=== PATIENT | female | born 1995 | race Caucasian/White ===

== ENCOUNTER → 2018-05-08 20:48 | Outpatient (CLI) | payer SELFPAY ==
[2018-05-08 22:41] LABS: Chlamydia Trachomatis by PCR Negative (Negative); Neisserai gonorrhoeae by PCR Negative (Negative); Probe Check PASS; Sample Adequacy Control PASS; Specimen Processing Control PASS
== END ==
PROVIDERS: Visit Provider Obstetrics & Gynecology
DX: Z12.4 Encounter for screening for malignant neoplasm of cervix (principal); Z11.3 Encounter for screening for infections with a predominantly sexual mode of transmission; Z32.01 Encounter for pregnancy test, result positive
CPT/HCPCS: 87491; 87591; 88175; G0145

== ENCOUNTER → 2018-09-04 09:40 | Outpatient (CLI) | payer OTHER, SELFPAY ==
[2018-09-04 10:50] LABS: Glucose GTT-Gestation. Fasting 75 mg/dL (<105)
[2018-09-04 12:08] LABS: Glucose GTT-Gestational 1 Hr 176 mg/dL (<190)
[2018-09-04 14:09] LABS: Glucose GTT-Gestational 3 Hr 62 L (<145)
[2018-09-04 14:09] LABS: Glucose GTT-Gestational 2 Hr 138 mg/dL (<165)
== END ==
PROVIDERS: Family Provider Family Medicine; PCP Family Medicine; Referring Provider Obstetrics & Gynecology; Visit Provider Obstetrics & Gynecology
DX: O24.912 Unspecified diabetes mellitus in pregnancy, second trimester (principal); Z3A.00 Weeks of gestation of pregnancy not specified
CPT/HCPCS: 36415; 82951; 82952

== ENCOUNTER → 2018-10-23 09:30 | Outpatient (CLI) | payer OTHER, SELFPAY ==
--- OUTSIDE RECORDS SUMMARY | 2019-01-25 10:26 | XMS RPT_ITS ---
:1995 Author Organization OHIP Care Team Providers Name Role Phone KYLIE WHEATLEY MD Primary Care Unavailable KYLIE WHEATLEY MD Attending Unavailable KYLIE WHEATLEY MD Admitting Unavailable EM CASTILLO Admitting Unavailable EM CASTILLO Attending Unavailable EM CASTILLO Primary Care Unavailable AARON COHEN Consulting Unavailable ANTHONY BRIDGES CNM Primary Care Unavailable ANTHONY BRIDGES CNM Attending Unavailable ANTHONY BRIDGES CNM Admitting Unavailable PROVIDER, UNKNOWN Consulting Unavailable Em Castillo Attending Unavailable Riddhi Huff Attending Unavailable Riddhi Huff Admitting Unavailable Em Castillo Attending Unavailable Em Castillo Referring Unavailable Em Castillo Admitting Unavailable Em Castillo Attending Unavailable Em Castillo Referring Unavailable Em Castillo Attending Unavailable Em Castillo Referring Unavailable Aaron Cohen Primary Care Unavailable PROBLEMS PROBLEMS DATE TYPE CONDITION / CODE ATTENDING STATUS SOURCE 11/24/2018 Unknown G89.18 - Other acute Riddhi Huff postprocedural pain Community / G89.18(ICD-10) Hospital Repository 10/24/2018 Unknown Z36.85 - Encounter Em Castillo for Community screening for Hospital Streptococcus B / Repository Z36.85(ICD-10) 09/04/2018 Unknown O24.912 - Agueda Em Carlos Unspecified diabetes Community mellitus in Hospital , second Repository trimester / O24.912(ICD-10) 08/28/2018 Admitting Encounter for EM CASTILLO Leanna Ferguson Diagnosis supervision of other [facility] second trimester / Repository Z3482(ICD-10) 08/28/2018 Principle Encounter for EM CASTILLO Leanna Ferguson Diagnosis supervision of other [facility] second trimester / Repository Z3482(ICD-10) 05/10/2018 Unknown Z32.01 - Encounter Em Castillo for test, Community result positive / Hospital Z32.01(ICD-10) Repository 05/10/2018 Unknown Z11.3 - Encounter Em Castillo for screening for Community infections with a Hospital predominantly sexual Repository mode of transmission / Z11.3(ICD-10) 05/10/2018 Unknown Z12.4 - Encounter Em Castillo for screening for Community malignant neoplasm [facility] / Repository Z12.4(ICD-10) PROCEDURES PROCEDURES No Procedure Records FoundRESULTS RESULTS DISCHARGE SUMMARY Observed: 11/24/2018 Status: F Source: [place] 10:27 AM [facility] REPOSITORY [facility] Medical Records Department [address] [place] [address] Discharge Summary 11/24/18 1025 MR#: [id number] Acct: [id number] Name: VI LUND Nate Rep #: [id number] : 1995 23 From: Shea Cordova MD PCP: Status: ADM IN Y Location: WP [id number] Discharge Date and Diagnosis Date of Admission: 11/21/18 Date of Discharge: 11/24/18 Hospital Course and Treatment Operations: - - Low transverse section Procedures: None Summary of Care Provided: The patient is a 23 year old F 1 admitted at 40 weeks gestation in labor. She underwent primary section for arrest of descent. Her postoperative course was uncomplicated. She was out of bed, ambulating, voiding, tolerating a regular diet and passing flatus. She was discharged to home on post-operative day #3. - Physical Exam Vital Signs Temp Pulse Resp BP Pulse Ox 98.0 F 68 18 131/79 H 98 11/24/18 09:00 11/24/18 09:00 11/24/18 09:00 11/24/18 09:00 11/23/18 20:08 Oxygen Flow Rate (L/min) 1 Oxygen Delivery Method Room Air Weight: 91.2 kg Body Mass Index (BMI) 36.8 Intake and Output for Last 24 Hours Intake Total 2806 / 2806 Output Total 4250 / 4250 Balance -1444 / -1444 Discharge Diet: No Restrictions Discharge Activity: Return to Normal Activity, May Drive, May Shower Return to work on:: 01/21/19 May shower in (days): 0 May resume sexual activity in: 6 weeks Call your doctor if your incision/area has: Sudden Increased Bleeding, Increased Pain/ Swelling, Increased Redness, Foul Smelling Discharge, Swelling at the incision site Call your doctor if you observe: Fever of 101 or Higher, Inability to urinate, Inability to have a bowel movement, Using more than one pad per hour, Shortness of breath, Chest pain, Calf discomfort, Uncontrolled pain Remove Dressing in (days):: 3 Cleanse incision/area with: Soap AND Water Home Medications: Medications to take at Discharge Ibuprofen 600 mg PO 4X/DAY #30 tab 11/21/18 Oxycodone [Oxyir] 5 - 10 mg PO Q4H PRN PRN 7 Days #20 tab 11/21/18 Following Prescrptions Were Given to Patient: Oxycodone [Oxyir] 5 - 10 mg PO Q4H PRN PRN 7 Days #20 tab PRN Reason: Mod-Severe Pain (-08/15) Ibuprofen 600 mg PO 4X/DAY #30 tab Please Follow Up With: Em Castillo MD When: 1-2 weeks call for appt Medical Necessity - Tobacco Use Smoking Status: Never smoker Meaningful Use Info Meaningful Use Diagnoses (Choose all that apply): None applicable 11/24/18 1027 <Electronically signed by Shea Resendiz MD> Date Shea Resendiz MD Cosigner Signature (if applicable): Date CC: Shea Resendiz MD Signed OPERATIVE REPORT Observed: 11/22/2018 Status: F Source: [place] 8:05 AM [facility] REPOSITORY [facility] Medical Records Department [address] [place] [address] Operative Report 11/21/18 2159 MR#: [id number] Acct: [id number] Name: VI LUND Rep #: [id number] : 1995 23 From: Serafin Walls MD PCP: Status: ADM IN Location: [id number] Report of Operation Date of Procedure: 11/21/18 Pre-Operative Diagnosis: Arrest of Descent Post-Operative Diagnosis: Same Surgery/Procedure Performed:: Primary Low Transverse Section Description of Surgical Findings:: Baby in transverse position. Amniotic fluid with moderate meconium. weight 8lb0oz. APGARs 8/9. Normal appearing uterus, ovaries, fallopian tubes. Maximum descent to +2 station. sound effects technician: Kathryn Archer Type of Anesthesia:: Epidural Anesthesiologist: Guillermo Quintero Special Medications: none Specimen's removed: none Drains: barraza Estimated Blood Loss (mL): 600cc Fluids Replaced: 1500cc Description of Procedure: Vi progressed to FD pushed for 3 hours with no descent lower than +2 station despite adequate pushing efforts and trial of Kiwi vacuum assisted delivery. Procedures, risks, and indications explained prior to the surgery. She was taken to the OR with IV running. She was given two gram of Ancef intravenously for surgical prophylaxis. Her epidural anesthesia was dosed and found to be adequate. She was prepped and draped in the supine position with a leftward tilt. A barraza catheter had been previously placed. A Pfannensteil skin incision was then made with the scalpel. The underlying subcutaneous tissue was dissected down to the level of fascia with sharp and blunt dissection. The fascia was then entered in the midline and the fascial defect was extended bilaterally using the Cali scissors. The upper portion of the fascial defect was then grasped with two Jacques clamps, elevated and the rectus muscles dissected off with sharp and blunt dissection. In a similar fashion the rectus muscles were dissected off the lower fascial defect. The rectus muscles were then in the midline, the peritoneum identified and entered sharply. The peritoneal defect was enlarged using blunt dissection. A bladder blade was placed. A bladder flap was then created and the bladder blade replaced. The lower uterine segment was then incised in a transverse fashion. Once the cavity was entered the uterine defect was extended using blunt lateral and superior traction. The baby's head and body were then delivered atraumatically. The baby's mouth and nares were suctioned with a bulb suction. The cord was clamped and cut and the baby handed off to the waiting pediatric nurse for evaluation by the entertainment centre manager Dr Ma. The placenta was delivered manually, the uterus exteriorized, and the cavity cleared of all clot and membranes. The uterine incision was repaired in two layers with #1 Vicryl suture. The posterior cul de sac and gutters were cleared of all clot and fluid. The uterus was returned to the abdomen. The uterine incision was reinspected and found to be hemostatic. The peritoneum was repaired with a running stitch of 2-0 Vicryl. The rectus muscles were reapproximated with interrupted sutures of 0-Vicryl. The fascia was closed with a running stitch of #1 Stratofix suture. The subcutaneous tissue was closed with a running stitch of 2- 0 Vicryl. The skin was closed with a subcuticular stitch of 4-0 Monocryl. Sponge, lap, needle, and instrument counts were correct. She was taken to her recovery room in stable condition. Grafts/Implants Used: none - Complications none - Admit VTE Documentation VTE Present on Admission: No VTE Mechan Device Prophylaxis: SCD's VTE Pharm Prophylaxis ordered?: No 11/22/18 0805 <Electronically signed by Serafin Walls MD> Date Serafin Walls MD CC: Serafin Walls MD Signed OPERATIVE REPORT Observed: 11/22/2018 Status: F Source: [place] 8:03 AM [facility] REPOSITORY [facility] Medical Records Department [address] [place] [address] Operative Report 11/21/18 2157 MR#: [id number] Acct: [id number] Name: VI LUND Rep #: [id number] : 1995 23 From: Serafin Walls MD PCP: Status: ADM IN Y Location: [place] [address] Delivery Classification: STEPHANIE Final JAJA: 11/21/18 Final JAJA Source: US <20 weeks Gestational age: 40 Weeks and 1 Days doctor who attended delivery (if requested by OB): Gracia Panchal Indications for : Failure to Progress, Failure of Descent Description of Procedure: Baby in transverse position. Amniotic fluid with moderate meconium. weight 3bol0tr. Apgars 8/9. Normal appearing uterus, ovaries, and fallopian tubes. Amniotic Membrane Rupture Type: Spontaneous Amniotic Fluid Description: Clear, Moderate meconium Placenta Disposition: [facility] Drain: Barraza to straight drain Fluids Replaced: 1500cc Cord Entanglement: None Nuchal Cord Compression: Without compression Cord Vessel Description: 3 Vessels Esitmated Blood Loss (ml): 600 Gender: Male (1 minute): 8 (5 minute): 9 Delayed cord clamping: Yes Pre-op Antibiotic Given: Ancef 2 grams IV x1 Pt instructed on risks of surgery: Bleeding, Infection, Injury to surrounding structure(s) including bowel and bladder Complications: None - Admit VTE Documentation VTE Present on Admission: No VTE Mechan Device Prophylaxis: SCD's VTE Pharm Prophylaxis ordered?: No 11/22/18 0803 <Electronically signed by Serafin Walls MD> Date Serafin Walls MD CC: Serafin Walls MD Signed CBC-COMPLETE BLOOD CNT Collected: 11/22/2018 Status: F Source: [place] NO DIFF 5:50 AM [facility] REPOSITORY Order Comment: Comments: Day #1 Reason for Laboratory Test TYPE CODE TESTS RESULT OUT OF RANGE REFERENCE UNITS LAB L100.1000 4.4-11.0 K/mm3 High WBC 15.4 LAB L100.1200 4.2-5.4 M/mm3 Low RBC 3.75 LAB L100.1300 12.0-15.0 g/dl Low HGB 10.5 LAB L100.1400 37-47 % Low HCT 32.5 LAB L100.1500 81-99 fL Normal MCV 86.7 LAB L100.1600 27.0-32.0 pg Normal MCH 28.0 LAB L100.1700 32-36 g/gl Normal MCHC 32.3 LAB L100.1810 11.6-14.6 % Normal RDW CV 14.5 LAB L100.1820 35.1-43.9 fl High RDW SD 45.2 LAB L100.1900 150-450 K/mm3 Normal PLT 162 LAB L100.2000 6.2-12.0 fl Normal MPV 9.7 Performed By: #### L100.0500 #### [facility] [address] [facility] [place], [address] DISCHARGE INSTRUCTION Observed: 11/21/2018 Status: F Source: [place] 10:14 PM [facility] REPOSITORY [facility] Medical Records Department [address] [place] [address] Instructions for Home/Discharge Instructions 11/21/18 2213 MR#: [id number] Acct: [id number] Name: VI LUND Rep #: [id number] : 1995 23 From: Serafin Walls MD PCP: Status: ADM IN Discharge Diet: No Restrictions Discharge Activity: Return to Normal Activity, May Drive, May Shower Return to work on:: 01/21/19 May shower in (days): 0 May resume sexual activity in: 6 weeks Call your doctor if your incision/area has: Sudden Increased Bleeding, Increased Pain/ Swelling, Increased Redness, Foul Smelling Discharge, Swelling at the incision site Call your doctor if you observe: Fever of 101 or Higher, Inability to urinate, Inability to have a bowel movement, Using more than one pad per hour, Shortness of breath, Chest pain, Calf discomfort, Uncontrolled pain Remove Dressing in (days):: 3 Cleanse incision/area with: Soap AND Water Additional Instructions: If you experience any of the following, contact your healthcare provider. * Bleeding that soaks a pad every hour for 2 hours * Fever 100.4 or higher * Unrelieved incision or abdominal pain * Swelling, redness, discharge or bleeding from your incision or episiotomy site * Your incision begins to separate * Problems urinating (including inability to urinate or burning while urinating). * Visual changes * Severe headache * Flu-like symptoms * Pain or redness in one of both of your breasts * Pain, warmth, tenderness or swelling in your legs, especially the calf area * Frequent nausea and vomiting * Symptoms of depression or anxiety If you experience any of the following, call 911 or go to the nearest Emergency Room. * Chest pain * Problems breathing * Seizure activity * Partial or complete paralysis of a body part, slurred speech, weakness or drooping of the face, or a sudden inability to walk or hold your balance Allergies/Adverse Reactions: Allergies No Known Allergies Allergy (Verified 11/21/18 00:42) Medications to take at Discharge Ibuprofen 600 mg PO 4X/DAY #30 tab 11/21/18 Oxycodone [Oxyir] 5 - 10 mg PO Q4H PRN PRN 7 Days #20 tab 11/21/18 The following prescriptions were given: Oxycodone [Oxyir] 5 - 10 mg PO Q4H PRN PRN 7 Days #20 tab PRN Reason: Mod-Severe Pain (4-10/10) Ibuprofen 600 mg PO 4X/DAY #30 tab Follow-Up: Call to make an appointment with your doctor for an incision check in 1-2 weeks. You will also need a 6 week post- follow up appointment. Test results from this visit will be discussed in further detail at your follow-up appointment, if applicable. Please Follow Up With: Em Castillo MD When: 1-2 weeks call for appt Proposed Discharge Date: 11/24/18 11/21/18 3900 <Electronically signed by Serafin Walls MD> Date Serafin Walls MD CC: Signed CBC-COMPLETE BLOOD CNT Collected: 11/21/2018 Status: F Source: [place] NO DIFF 1:20 AM [facility] REPOSITORY TYPE CODE TESTS RESULT OUT OF RANGE REFERENCE UNITS LAB L100.1000 4.4-11.0 K/mm3 High WBC 12.2 LAB L100.1200 4.2-5.4 M/mm3 Normal RBC 4.20 LAB L100.1300 12.0-15.0 g/dl Normal HGB 12.0 LAB L100.1400 37-47 % Low HCT 36.1 LAB L100.1500 81-99 fL Normal MCV 86.0 LAB L100.1600 27.0-32.0 pg Normal MCH 28.6 LAB L100.1700 32-36 g/gl Normal MCHC 33.2 LAB L100.1810 11.6-14.6 % Normal RDW CV 14.1 LAB L100.1820 35.1-43.9 fl Normal RDW SD 43.3 LAB L100.1900 150-450 K/mm3 Normal PLT 244 LAB L100.2000 6.2-12.0 fl Normal MPV 10.2 Performed By: #### L100.0500 #### [facility] [address] [facility] [place], [address] TYPE AND SCREEN Collected: 11/21/2018 Status: F Source: [place] 1:20 AM [facility] REPOSITORY Order Comment: Reason for Type AND Screen/Red Cells: ROUTINE TYPE CODE TESTS RESULT OUT OF RANGE REFERENCE UNITS LAB B10.0800 A Normal BLOOD TYPE GEL POSITIVE LAB B100.4000 Normal Antibody NEGATIVE Screen Performed By: #### B101.7450 #### [facility] [address] [facility] [place], [address] Observed: 10/23/2018 Status: F Source: [place] CULTURE, GROUP B 9:30 AM [facility] REPOSITORY Comments: VAGINAL/RECTAL ESPERANZA Culture ORGANISM 1: Streptococcus agalactiae (B) Amount Growth Growth Streptococcus agalactiae (B): REACTION Ampicillin $ <=0.25 S Clindamycin $$ <=0.25 R Inducable Clindamycin Resistan + Linezolid $$$$ <=2 S Vancomycin $ 0.5 S (NF) indicates non-formulary drug at [facility]. Approval by Infectious Disease Specialist required before non-formulary drugs may be ordered and/or dispensed. * CLSI guidelines does not recommend testing of cephalosporins. This interpretation is deduced from Beta-lactam/penicillin results. Performed By: #### M100.1800 #### [facility] [address] [facility] [place], [place], [address] GESTATIONAL GTT 3HR Collected: 09/04/2018 Status: F Source: [place] 100G 9:47 AM [facility] REPOSITORY Order Comment: Is Patient Fasting? Y TYPE CODE TESTS RESULT OUT OF RANGE REFERENCE UNITS LAB L501.0650 <105 mg/dL Normal GLU 75 GTT-FASTING Result Comment: GLUCOSE TOLERANCE TEST FOR Reference Interval GESTATIONAL DIABETES Fasting <105 mg/dL 1 hour <190 mg/dl 2 hour <165 mg/dl 3 hour <145 mg/dl LAB L501.0660 <190 mg/dL Normal GLU GTT- 1HR 176 LAB L501.0670 <165 mg/dL Normal GLU GTT- 2HR 138 LAB L501.0680 <145 L Normal GLU GTT- 3HR 62 Performed By: #### L500.4710 #### [facility] [address] [facility] [place], [place], [address] URINALYSIS WITHOUT Collected: 08/30/2018 Status: F Source: [facility] MICROSCOPY 7:44 PM [facility] REPOSITORY TYPE CODE TESTS RESULT OUT OF REFERENCE UNITS RANGE LAB URINALYSIS WITHOUT MICROSCOPY(LOIN C) URINALYSIS WITHOUT MICROSCOPY Result Comment: URINE DIPSTICK ONLY LAB Color(LOINC) Color YELLOW LAB Clarity(LOINC) Clarity clear LAB pH(LOINC) NORMAL: 5.0-8.0 pH 7 LAB Protein(LOINC) NORMAL: NEGATIVE Protein NEG LAB Glucose(LOINC) NORMAL: NEGATIVE Glucose NORM LAB Ketone(LOINC) NORMAL: NEGATIVE Ketone Abnormal 5 LAB Bilirubin(LOINC) NORMAL: NEGATIVE Bilirubin NEG LAB Blood(LOINC) NORMAL: NEGATIVE Blood NEG LAB Urobilinogen(LOIN 0.2 - 1.0 C) Urobilinogen NORM LAB Sp [place](LOINC) NORMAL: 1.010-1.035 Sp [place] 1.010 LAB Nitrite(LOINC) NORMAL: NEGATIVE Nitrite NEG LAB Leukocytes(LOINC) NORMAL: NEGATIVE Leukocytes Abnormal 500 Performed By: #### [id number] #### [facility] [address] Observed: 08/30/2018 Status: F Source: [facility] FIBRONECTIN 7:44 PM [facility] REPOSITORY FIBRONECTIN POSITIVE A negative fFN test rules out delivery: < 1% will deliver within the next 14 days. A positive fFN test allows interventions for those with highest risk of delivery in the next 14 days Invalid means that the assay did not meet internal acceptance criteria for a valid test. This can be due to contamination of the swab or cervicovaginal secretions with lubricants, soaps, or disinfectants. Performed By: #### [id number] #### [address] [address] CBC Collected: 08/28/2018 Status: F Source: [facility] 9:55 AM [facility] REPOSITORY TYPE CODE TESTS RESULT OUT OF RANGE REFERENCE UNITS LAB CBC(LOINC) CBC Result Comment: CBC-COMPLETE BLOOD COUNT LAB WBC(LOINC) 4.5 - 10.8 x 10EE3/UL WBC 9.9 LAB RBC(LOINC) 4.10 - x 10EE6/UL 5.30 RBC Low 3.65 LAB HEMOGLOBIN(LOINC) 12.0 - g/dl 16.0 Low HEMOGLOBIN 11.1 LAB HEMATOCRIT(LOINC) 34.0 - % 46.0 Low HEMATOCRIT 32.7 LAB MCV(LOINC) 80 - 99 fl MCV 90 LAB MCH(LOINC) 27 - 33 pg MCH 31 LAB MCHC(LOINC) 32 - 36 X10 3 MCHC 34 LAB RDW/CV(LOINC) 12.0 - % 15.6 RDW/CV 12.7 LAB PLATELET(LOINC) 150 - 450 x10EE3/UL PLATELET 258 LAB MPV(LOINC) 6.6 - 10.5 fl MPV 7.8 Result Comment: AUTOMATED DIFFERENTIAL LAB NEUT %(LOINC) 46.0 - 76.0 % NEUT % High 78.6 LAB LYMPH %(LOINC) 20.0 - 45.0 % Low LYMPH % 15.4 LAB MONOS %(LOINC) 0.0 - 10.0 % MONOS % 5.3 LAB EO %(LOINC) 0.0 - 7.0 % EO % 0.4 LAB BASO %(LOINC) 0.0 - 2.0 % BASO % 0.3 LAB Lymph #(LOINC) 0.80 - 2.80 x10EE3/U L Lymph # 1.50 LAB Neut #(LOINC) 1.50 - 7.10 x10EE3/U L Neut # High 7.80 LAB Dade #(LOINC) 0.20 - 1.00 x10EE3/U L [place]ade # 0.50 LAB EO #(LOINC) 0.00 - 0.50 x10EE3/U L EO # 0.00 LAB Baso #(LOINC) 0.00 - 0.10 x10EE3/U L Baso # 0.00 LAB MANUAL DIFF([facility]) MANUAL DIFF N/A LAB MORPHOLOGY(INC ) MORPHOLOGY N/A Result Comment: {CD] Performed By: #### [id number] #### [facility],[address] [place] [address] GLUCOSE CHALLENGE 50GM Collected: 08/28/2018 Status: F Source: [facility] 1 HOUR 9:55 AM [facility] REPOSITORY TYPE CODE TESTS RESULT OUT OF REFERENCE UNITS RANGE LAB GLUCOSE CHALLENGE 50GM 1 HOUR(INC) GLUCOSE CHALLENGE 50GM 1 HOUR Result Comment: GLUCOSE CHALLENGE 50 GMS 1 HOUR LAB GLUCOSE 70 - 140 mg/dl 1HR(LOINC) High GLUCOSE 1HR 158 Performed By: #### [id number] #### [facility],[address] [place] [address] URINALYSIS Collected: 06/05/2018 Status: F Source: [facility] 10:00 AM [facility] REPOSITORY TYPE CODE TESTS RESULT OUT OF REFERENCE UNITS RANGE LAB URINALYSIS (LOINC) URINALYSIS Result Comment: URINALYSIS LAB Specimen Type(INC) Specimen Type UNSPECIFIED LAB Color(LOINC) NORMAL: YELLOW Color p.yel LAB Clarity(LOINC) NORMAL: CLEAR Clarity clear LAB ph(LOINC) NORMAL: 5.0-8.0 ph 7 LAB Protein(LOINC) NORMAL: NEGATIVE Protein NEG LAB Glucose(LOINC) NORMAL: NORMAL Glucose NORM LAB Ketone(LOINC) NORMAL: NEGATIVE Ketone NEG LAB Bilirubin(LOINC) NORMAL: NEGATIVE NEG Bilirubin LAB Blood(LOINC) NORMAL: NEGATIVE Blood 10 Abnormal LAB Urobilinog(LOINC NORMAL: ) NORMAL NORM Urobilinog LAB Sp NORMAL: [place](LOINC) Low 1.010-1.030 Sp 1.005 [place] LAB Nitrite(LOINC) NORMAL: NEGATIVE Nitrite NEG LAB Leukocytes(LOINC NORMAL: ) NEGATIVE 100 Abnormal Leukocytes LAB Microscopic(LOIN C) SEE Microscopic BELOW Result Comment: MICROSCOPIC LAB Wbc(LOINC) 0-5/hpf Wbc 6-10 LAB Rbc(LOINC) 0-3/hpf Rbc NONE LAB Casts(LOINC) Casts NONE LAB Crystals(LOINC) Crystals NONE LAB Amorphous(LOINC) NONE Amorphous LAB Bacteria(LOINC) Bacteria TRACE LAB Epi Cells(LOINC) Epi Cells MODERATE LAB Mucous(LOINC) Mucous NONE LAB Yeast(LOINC) Yeast NONE Performed By: #### [id number] #### [facility],[address] [place] [address] CBC Collected: 06/05/2018 Status: F Source: [facility] 10:00 AM [facility] REPOSITORY TYPE CODE TESTS RESULT OUT OF RANGE REFERENCE UNITS LAB CBC(LOINC) CBC Result Comment: CBC-COMPLETE BLOOD COUNT LAB WBC(LOINC) 4.5 - 10.8 x 10EE3/UL WBC 9.6 LAB RBC(LOINC) 4.10 - x 10EE6/UL 5.30 RBC 4.30 LAB HEMOGLOBIN(LOINC) 12.0 - g/dl 16.0 HEMOGLOBIN 13.2 LAB HEMATOCRIT(LOINC) 34.0 - % 46.0 HEMATOCRIT 38.6 LAB MCV(LOINC) 80 - 99 fl MCV 90 LAB MCH(LOINC) 27 - 33 pg MCH 31 LAB MCHC(LOINC) 32 - 36 X10 3 MCHC 34 LAB RDW/CV(LOINC) 12.0 - % 15.6 RDW/CV 12.8 LAB PLATELET(LOINC) 150 - 450 x10EE3/UL PLATELET 261 LAB MPV(LOINC) 6.6 - 10.5 fl MPV 8.0 Result Comment: AUTOMATED DIFFERENTIAL LAB NEUT %(LOINC) 46.0 - 76.0 % NEUT % High 76.4 LAB LYMPH %(LOINC) 20.0 - 45.0 % Low LYMPH % 16.4 LAB MONOS %(LOINC) 0.0 - 10.0 % MONOS % 6.0 LAB EO %(LOINC) 0.0 - 7.0 % EO % 0.5 LAB BASO %(LOINC) 0.0 - 2.0 % BASO % 0.7 LAB Lymph #(LOINC) 0.80 - 2.80 x10EE3/U L Lymph # 1.60 LAB Neut #(LOINC) 1.50 - 7.10 x10EE3/U L Neut # High 7.30 LAB [place]ade #(LOINC) 0.20 - 1.00 x10EE3/U L [place] # 0.60 LAB EO #(LOINC) 0.00 - 0.50 x10EE3/U L EO # 0.00 LAB Baso #(LOINC) 0.00 - 0.10 x10EE3/U L Baso # 0.10 LAB MANUAL DIFF([facility]) MANUAL DIFF N/A LAB MORPHOLOGY([facility] ) MORPHOLOGY N/A Result Comment: {CD] Performed By: #### [id number] #### [place] [address] TSH Collected: 06/05/2018 Status: F Source: [facility] 10:00 [facility] REPOSITORY TYPE CODE TESTS RESULT OUT OF RANGE REFERENCE UNITS LAB TSH(INC) 0.34 - 5.60 uIU/ml TSH 0.60 Performed By: #### [id number] #### [place] [address] BB TYPE & SCREEN Collected: 06/05/2018 Status: F Source: [facility] 10:00 [facility] REPOSITORY TYPE CODE TESTS RESULT OUT OF REFERENCE UNITS RANGE LAB BB TYPE & SCREEN(LOIN C) BB TYPE & SCREEN Result Comment: TYPE, Rh, AND SCREEN LAB ABO(LOINC) ABO A LAB Rh(LOINC) Rh POS LAB ANTIBODY SCR([facility]) ANTIBODY negative SCR Performed By: #### [id number] #### [place] [address] HEP B SURFACE AG Collected: 06/05/2018 Status: F Source: [facility] 10:00 [facility] REPOSITORY TYPE CODE TESTS RESULT OUT OF REFERENCE UNITS RANGE LAB HEP B SURFACE AG(LOINC) HEP B SURFACE AG Result Comment: _HEP B S AG_ HEPATITIS B SURFACE ANTIGEN W/RFLX TO CONFIRM. Reported: 06/08/2018 03:50 Status=F TEST RESULT FLAG RANGE UNITS HEPATITIS B SURFACE AG Nonreactive Nonreactive 06/08/18.rfl.CORRCTD .AMRR .5196-1 CONFIRMATION see below 06/08/18.rfl.CORRCTD .AMRR .7905-3 Not required according to the current package insert. Test Performed by [facility], [facility], [address] [place] [id number] Oswaldo Cordova M.D., Ph.D., Director of Laboratories , [facility] [id number] 06/08/18.XMT.SENT REF 06/08/18.XMT.SENT REF Performed By: #### [id number] #### [facility],[address] [place], [place] [id number] HEP C VIRUS AB WITH Collected: 06/05/2018 Status: F Source: [facility] REFLEX [QUEST] 10:00 AM [facility] REPOSITORY TYPE CODE TESTS RESULT OUT OF REFERENCE UNITS RANGE LAB HEP C VIRUS AB WITH REFLEX [QUEST](LOINC HEP C ) VIRUS AB WITH REFLEX [QUEST] Result Comment: _HEP C VIRUS AB_ HEPATITIS C AB W/REFL HCV RNA, QN REAL-TIME PCR Reported: 06/08/2018 03:50 Status=F TEST RESULT FLAG RANGE UNITS HEPATITIS C ANTIBODY Nonreactive Nonreactive 06/08/18.rfl.COMPLETE.AMRR .48280-9 SIGNAL TO CUTOFF 0.01 <1.00 ratio 06/08/18.rfl.COMPLETE.AMRR .29206-5 ADDITIONAL TESTING Not indicated 06/08/18.rfl.COMPLETE.AMRR Test Performed by [facility], [facility], [address] [place] [address] Oswaldo Cordova M.D., Ph.D., Director of Laboratories , [facility] [id number] Performed By: #### [id number] #### [facility],[address] [place] [address] RUBELLA Collected: 06/05/2018 Status: F Source: [facility] 10:00 [facility] REPOSITORY TYPE CODE TESTS RESULT OUT OF REFERENCE UNITS RANGE LAB RUBELLA(ELIEZER NC) RUBELLA Result Comment: _RUBELLA_ RUBELLA ANTIBODY (IGG) Reported: 06/08/2018 09:45 Status=F TEST RESULT FLAG RANGE UNITS RUBELLA ANTIBODY (IGG) 7.48 >=1.00 Index 06/08/18.0956.Jennifer .AMRR .5334-8 INDEX INTERPRETATION < 0.90 Not consistent with Immunity 0.90 - 0.99 Equivocal > or = 1.00 Consistent with Immunity The presence of Rubella IgG antibody suggests immunization or past or current infection with Rubella virus. Test Performed by [facility], [facility], [address] [place] [address] Oswaldo Cordova M.D., Ph.D., Director of Laboratories , [facility] [id number] 06/08/18.1000.XMT.SENT REF 06/08/18.999.XMT.SENT REF Performed By: #### [id number] #### [facility],[address] [place] [address] RPR [QUEST] Collected: 06/05/2018 Status: F Source: [facility] 10:00 AM [facility] REPOSITORY TYPE CODE TESTS RESULT OUT OF RANGE REFERENCE UNITS LAB RPR [QUEST](ELIEZER AK) RPR [QUEST] Result Comment: _RPR (MONITOR) with REFLEX_ RPR (MONITOR) WITH REFLEX TO TITER Reported: 06/08/2018 18:14 Status=F TEST RESULT FLAG RANGE UNITS RPR SCREEN Nonreactive Nonreactive 06/08/18.BethTD .AMRR .12901-4 RPR TITER Not indicated. 06/08/18.Jennifer .AMRR Test Performed by [facility], [facility] [facility], [address] [place] [address] Oswaldo Cordova M.D., Ph.D., Director of Kereos , [facility] [id number] 06/08/18.XMT.SENT REF 06/08/18.XMT.SENT REF Performed By: #### [id number] #### [facility],[address] [place] [address] AFP MATERNAL (SERUM) Collected: 06/05/2018 Status: F Source: [facility] [QUEST] 10:00 AM [facility] REPOSITORY TYPE CODE TESTS RESULT OUT OF REFERENCE UNITS RANGE LAB AFP MATERNAL (SERUM) [QUEST](LOINC) AFP MATERNAL (SERUM) [QUEST] Result Comment: _MATERNAL SERUM AFP_ MATERNAL SERUM AFP Reported: 06/11/2018 22:24 Status=F TEST RESULT FLAG RANGE UNITS INTERPRETATION see below 06/11/18.rfl.COMPLETE.AMRR Screen negative for open NTD. Risk for ONTD <1:5000 06/11/18.rfl.COMPLETE.AMRR AFP, Serum 32.6 ng/mL 06/11/18.rfl.COMPLETE.AMRR AFP MoM 1.10 06/11/18.rfl.COMPLETE.AMRR Reference Range: NTD <2.50 IDD <1.90 TWINS <4.00 TWINS IDD <3.50 TRIPLETS <4.50 Performance of maternal AFP provides a useful screening test for detection of open neural tube defect. The single AFP marker is not recommended for Down Syndrome and other chromosomal abnormalities screening. Much greater sensitivity is achieved with multiple markers, such as AFP, HCG, Unconjugated Estriol, and/or dimeric Inhibin A, as recommended by the [place] [employer]. It should be noted that normal test results can never guarantee the of a normal baby and that 2-3% of newborns have some type of physical or mental defect, many of which are undetectable through any known diagnostic technique. For additional information, please refer to http://education.[employer]/faq/BDB12l9 (This link is being provided for informational/educational purposes only.) Calc'd Gestational Age 15.9 06/11/18.rfl.COMPLETE.AMRR Est'd Date of Delivery 11/21/2018 06/11/18.rfl.COMPLETE.AMRR JAJA Determined by US 06/11/18.rfl.COMPLETE.AMRR Maternal Weight 166 lbs 06/11/18.rfl.COMPLETE.AMRR Mother's Ethnic Origin W 06/11/18.rfl.COMPLETE.AMRR Insulin Depend Diabetic N 06/11/18.rfl.COMPLETE.AMRR Repeat Specimen N 06/11/18.rfl.COMPLETE.AMRR Number of Fetuses 1 06/11/18.rfl.COMPLETE.AMRR Hx of Neural Tube Defects N 06/11/18.rfl.COMPLETE.AMRR Date of 1995 06/11/18.rfl.COMPLETE.AMRR Collection Date 06/05/2018 06/11/18.rfl.COMPLETE.AMRR Prev Down Synd N 06/11/18.2235.rfl.COMPLETE.AMRR Donor Egg N 06/11/18.2235.rfl.COMPLETE.AMRR Donor Age: Egg Retrieval N 06/11/18.2235.rfl.COMPLETE.AMRR Test performed by [employer] [address] [place] [address] Manager Care Management: Supriya Monge MD,PHD,BAM Test Reported by [facility], [employer] [place], [address] [place], [place] Oswaldo Cordova M.D., Ph.D., Director of Laboratories , [facility] [id number] Performed By: #### [id number] #### [facility],[address] [address] [address]/NG [facility] BY PCR Collected: 05/08/2018 Status: F Source: [place] 8:49 PM [facility] REPOSITORY TYPE CODE TESTS RESULT OUT OF RANGE REFERENCE UNITS LAB L8200.2100 Negative Normal Chlam Negative Trac PCR LAB L8200.2200 Negative Normal NG by Negative PCR Performed By: #### L8200.2000 #### [facility] [address] [place], [place], [id number] PAP TEST I-G Collected: 05/08/2018 Status: F Source: [place] 8:49 PM [facility] REPOSITORY Order Comment: CYTOLOGY INFORMATION: - CLINICAL INFORMATION: - DATE LMP/MENOPAUSE: 02/14/18 LMP - COLLECTION VIAL: Thin Prep Vial - TRANSITION SOCIAL WORKER SOURCE: CERVICAL/ENDOCERVICAL - COLLECTION TECHNIQUE: BRUSH/SPATULA Specimen Comment: [id number] Specimen Comment: No. of containers..01 ThinPrep Vial TYPE CODE TESTS RESULT OUT OF RANGE REFERENCE UNITS LAB L7400.0800 . Normal DIAGN Comment Result Comment: NEGATIVE FOR INTRAEPITHELIAL LESION AND MALIGNANCY. PREDOMINANCE OF COCCOBACILLI CONSISTENT WITH SHIFT IN VAGINAL PEDRO IS PRESENT. CELLULAR CHANGES ASSOCIATED WITH INFLAMMATION ARE PRESENT. LAB L7400.0900 . Normal ADEQ Comment Result Comment: Satisfactory for evaluation. No endocervical component is identified. LAB L7400.1400 . Normal PERFORM Comment Result Comment: Tonia Post, Tunnel Mucker (ASCP) LAB L7400.1720 . Normal Path prov. Comment ICD9 Result Comment: R87.5 LAB L7400.2575 . Normal TEST METHOD Comment Result Comment: This liquid based ThinPrep(R) pap test was screened with the use of an image guided system. Performed at: - [facility] [id number] [place] Brushing Machine Operator: Sonia Márquez MD, Phone: [phone] LAB L1000.0501 . Normal . COMM LAB L7400.2610 . Normal PAPSMR Comment Result Comment: The Pap smear is a screening test designed to aid in the detection of premalignant and malignant conditions of the uterine cervix. It is not a diagnostic procedure and should not be used as the sole means of detecting cervical cancer. Both false-positive and false-negative reports do occur. Performed By: #### L7400.0399 #### [facility] (refer to report for specific site) refer to report for address and phone number ALLERGIES ALLERGIES DATE TYPE / CODE NAME / CODE REACTION SEVERITY SOURCE 11/21/2018 Drug No Known Unknown [place] Allergy/[id number](S Allergies/F0019 [facility]) 09970(RXNORM) Hospital Repository Miscellaneous No Known U Casper Ferguson Allergy/[id number](S Allergies [facility]) Hospital Repository ENCOUNTERS ENCOUNTERS ADMIT/DISCHARGE ACCOUNT ADMITTING ENCOUNTER LOCATION SOURCE NUMBER CLASS 11/21/2018/ [id number] [place], [place] 2 Riddhi Encounter [facility] ing:WPRoom: Repository [id number]: 1 11/21/2018 [id number] Em Castillo Ambulatory [place] 7 [facility] ing:WP Repository 10/23/2018 [id number] Ambulatory [place] 3 [facility] ing:LABSPEC Repository 09/04/2018 [id number] Ambulatory [place] 7 [facility] ing:LAB Repository 08/30/2018/ [id number] CYRUS, [facility] BuildinR [place] Ferguson 8 ANTHONY CAZARES oom: [address] [place] [address] Repository 08/28/2018/ [id number] EM CASTILLO Ambulatory [facility] 8 [facility] Repository 06/05/2018/ [id number] WHEATLEYKYLIE [facility] 8 [facility] Repository 05/08/2018 [id number] Ambulatory [place] [address] [place] [address] ing:LABSPEC Repository PAYERS PAYERS ENCOUNTER GUARANTOR PAYER SUBSCRIBER SOURCE 11/21/2018 VI Nate Primary Insurance:[facility] VI [id number] TR PACKAGE PLANPolicy MILLERDOB: [address], Number: [id number] [address]Ygm: [id number] Repository Date:2018-11-21 () 11/21/2018 Secondary NOT GIVENUNK [place] Insurance:SELF PAY [facility] Number: Effective Repository Date:2018-11-21 11/21/2018 VI Primary Insurance:[facility] VI [place]ance [id number] TR PACKAGE PLANPolicy MILLERDOB: [address], Number: 0Effective [id number] Service Unit [address]Hpx: Date:2018-05-29 Repository () 11/21/2018 Secondary NOT GIVENUNK [place] Insurance:SELF PAY [facility] Number: Effective Repository Date:2018-05-29 10/23/2018 VI [place] Primary VI [id number] TR Insurance:YARSANISM MILLERDOB: [address] [id number] Service Unit [address]Srn: GROUPPolicy Number: Repository [id number] () Date: [address] [address]ST: 10/23/2018 Secondary NOT GIVENUNK [place] Insurance:SELF PAY [facility] Number: Effective Repository Date:2018-10-23 09/04/2018 VI Nate Primary VI [place] Terrancenya [id number] TR Insurance:YARSANISM MILLERDOB: [address] [id number] Service Unit [address]Ffk: [facility] Number: Repository [id number] () Date: [address] [address]MR: 09/04/2018 Secondary NOT GIVENUNK [place] Insurance:SELF PAY [facility] Number: Effective Repository Date:2018-08-29 08/30/2018 VI Primary NICOLE LEONARDB: Cas[place] LEONARDB: Insurance:YARSANISM [id number] [facility] [id number] [address] TR Number: 85Effective [address] [place] [address], Repository [address] [place] [address], [place]: [place] [address] [place] [address]Rni: () 05/08/2018 VI Primary [id number] Insurance:SELF PAY [address] [address]Taj: Number: Effective Repository Date:2018-05-08 ()
== END ==
PROVIDERS: Visit Provider Obstetrics & Gynecology
DX: Z36.85 Encounter for antenatal screening for Streptococcus B (principal)
CPT/HCPCS: 87077; 87081; 87186

== ENCOUNTER 2018-11-21 00:55 | Inpatient (IN) | payer SELFPAY ==
[2018-11-21 00:41] VITALS: BMI 36.8
[2018-11-21] MEDS: Lactated Ringers 1,000 ML 50 ML IV ×5 (01:20→19:08)
--- NOTE | 2018-11-21 01:26 | PCM.PN.BLA ---
Progress Note LABOR PROGRESS NOTE 40 wk female presents with CC of [facility]. IBOW labs scanned into ofc chart from [facility] and relayed to Carol at . 05/08/18 : pap and GC, chlamydia NEG 06/05/18 date: A positive RI, TSH wnl. HepBSAg neg Hep C neg HIV neg. RPR neg. MSAFP NEG. ABN glucola 158 but 3 hr GTT all WNL. GBS positive and sensitive to Ampicillin AVSS EFM 130-140 with avg variability after initially dec variability. Accels to 160-170s [facility] q 5-6 mins CX: per RN check /-1 at admission A/P 40 wk early labor. Admit. Ampicillin for GBS prophylaxis. Pitocin augment prn
--- NOTE | 2018-11-21 01:31 | PN_ITS ---
Progress Note LABOR PROGRESS NOTE 40 wk female presents with CC of [facility]. IBOW labs scanned into ofc chart from [facility] and relayed to Carol at . 05/08/18 : pap and GC, chlamydia NEG 06/05/18 date: A positive RI, TSH wnl. HepBSAg neg Hep C neg HIV neg. RPR neg. MSAFP NEG. ABN glucola 158 but 3 hr GTT all WNL. GBS positive and sensitive to Ampicillin AVSS EFM 130-140 with avg variability after initially dec variability. Accels to 160-170s [facility] q 5-6 mins CX: per RN check /-1 at admission A/P 40 wk early labor. Admit. Ampicillin for GBS prophylaxis. Pitocin augment prn
[2018-11-21 01:39] LABS: Hematocrit 36.1 % (37-47); Mean Corp Hgb Conc 33.2 g/gl (32-36); Mean Corpuscular Hgb 28.6 pg (27.0-32.0); Mean Platelet Vol. 10.2 fl (6.2-12.0); Platelet Count 244 K/mm3 (150-450); RBC Distribution Width CV 14.1 % (11.6-14.6); RBC Distribution Width SD 43.3 fl (35.1-43.9); White Blood Count 12.2 K/mm3 (4.4-11.0)
[2018-11-21 01:40] LABS: Scan Indicated on CBC? Y/N NO
[2018-11-21] MEDS: fentaNYL-bupivacaine (epidural) 100 ML BAG EPIDURAL ×4 (02:47→16:44)
[2018-11-21] MEDS: Oxytocin 30 units/NS 500 ml 30 UNITS/500 ML IV.SOLN IV (05:31)
--- NOTE | 2018-11-21 13:36 | PCM.PN.BLA ---
Progress Note LABOR PROGRESS NOTE -- 40 wk labor. SROM in night Comfortable w/ epidural AVSS pitocin at 12 mIU/min EFM 130-140s with avg variability Accels. Baby with some occasional earlies. Some nonrepetitive lates (mostly on L side) UCs with coupling and spacing q 2 - 3 for most CX per RN check 6-7/95/-1 at 13:15 per RN check. A/P: 40 wk Labor Pitocin augmentation. Continue pitocin position changes and observation of labor.
--- NOTE | 2018-11-21 14:36 | PCM.PN.OB ---
Subjective: Comfortable with epidural Objective: AFeb VSS FHR tracing Cat 1 - Physical Exam General: Alert, Oriented x3, Cooperative, No apparent distress Abdomen: Soft, Non Tender, Non-Distended, Gravid, Appropriate for Gestational Age Extremities: No edema Skin: No rashes Neurological: Neuro grossly intact Psych/Mental Status: Normal Affect Comment: ERASMO /-2 Weight: 201 lb 0.985 oz Body Mass Index (BMI) 36.8 Intake and Output for Last 24 Hours 11/19/18 11/20/18 11/21/18 23:59 23:59 23:59 Intake Total 640 / 640 Output Total 1450 / 1450 Balance -810 / -810 Laboratory Tests Past 24 Hrs 11/21/18 11/21/18 01:20 01:20 WBC 12.2 H RBC 4.20 Hgb 12.0 Hct 36.1 L MCV 86.0 MCH 28.6 MCHC 33.2 RDW 14.1 RDW Differential 43.3 Plt Count 244 MPV 10.2 Blood Type A POSITIVE Antibody Screen NEGATIVE Medical Necessity - Tobacco Use Smoking Status: Never smoker Assessment/Plan Cervix with anterior lip. Reassuring heart rate tracing. Expect fully dilated soon. Pitocin at 12 mu/min.
[2018-11-21] MEDS: Ondansetron 4 MG/2 ML Vial IV (16:30)
--- NOTE | 2018-11-21 21:48 | PCM.PN.OB ---
Subjective: Comfortable with epidural. Objective: AFeb VSS FHR tracing Cat 1. - Physical Exam General: Alert, Oriented x3, Cooperative, No apparent distress Abdomen: Soft, Non Tender, Non-Distended, Gravid, Appropriate for Gestational Age Extremities: No edema Skin: No rashes Neurological: Neuro grossly intact Psych/Mental Status: Normal Affect Comment: FD +2 station Weight: 201 lb 0.985 oz Body Mass Index (BMI) 36.8 Intake and Output for Last 24 Hours 11/19/18 11/20/18 11/21/18 23:59 23:59 23:59 Intake Total 3146 / 3146 Output Total 1900 / 1900 Balance 1246 / 1246 Laboratory Tests Past 24 Hrs 11/21/18 11/21/18 01:20 01:20 WBC 12.2 H RBC 4.20 Hgb 12.0 Hct 36.1 L MCV 86.0 MCH 28.6 MCHC 33.2 RDW 14.1 RDW Differential 43.3 Plt Count 244 MPV 10.2 Blood Type A POSITIVE Antibody Screen NEGATIVE Medical Necessity - Tobacco Use Smoking Status: Never smoker Assessment/Plan Progressed to FD then pushed for about 3 hours to bring head to +2 station. Despite efforts to deliver the baby with assist of the Kiwi vacuum device station did not improve. There were two mild pop offs in these efforts. Given lack of progress decision is made to deliver via delivery. Indications, risks, and procedures explained. All questions answered.
[2018-11-21] MEDS: Sodium Citrate/Citric Acid 30 ML UDC PO (21:50)
--- NOTE | 2018-11-21 21:57 | PCM.OB.CSR ---
Delivery Classification: STEPHANIE Final JAJA: 11/21/18 Final JAJA Source: US <20 weeks Gestational age: 40 Weeks and 1 Days doctor who attended delivery (if requested by OB): Gracia Panchal Indications for : Failure to Progress, Failure of Descent Description of Procedure: Baby in transverse position. Amniotic fluid with moderate meconium. weight 2vxw6qm. Apgars 8/9. Normal appearing uterus, ovaries, and fallopian tubes. Amniotic Membrane Rupture Type: Spontaneous Amniotic Fluid Description: Clear, Moderate meconium Placenta Disposition: [facility] Drain: Espinal to straight drain Fluids Replaced: 1500cc Cord Entanglement: None Nuchal Cord Compression: Without compression Cord Vessel Description: 3 Vessels Esitmated Blood Loss (ml): 600 Gender: Male (1 minute): 8 (5 minute): 9 Delayed cord clamping: Yes Pre-op Antibiotic Given: Ancef 2 grams IV x1 Pt instructed on risks of surgery: Bleeding, Infection, Injury to surrounding structure(s) including bowel and bladder Complications: None - Admit VTE Documentation VTE Present on Admission: No VTE Mechan Device Prophylaxis: SCD's VTE Pharm Prophylaxis ordered?: No
--- NOTE | 2018-11-21 21:59 | PCM.OPRPT ---
Report of Operation Date of Procedure: 11/21/18 Pre-Operative Diagnosis: Arrest of Descent Post-Operative Diagnosis: Same Surgery/Procedure Performed:: Primary Low Transverse Section Description of Surgical Findings:: Baby in transverse position. Amniotic fluid with moderate meconium. weight 8lb0oz. APGARs 8/9. Normal appearing uterus, ovaries, fallopian tubes. Maximum descent to +2 station. student financial aid manager: Kathryn Archer Type of Anesthesia:: Epidural Anesthesiologist: Guillermo Quintero Special Medications: none Specimen's removed: none Drains: barraza Estimated Blood Loss (mL): 600cc Fluids Replaced: 1500cc Description of Procedure: Vi progressed to FD pushed for 3 hours with no descent lower than +2 station despite adequate pushing efforts and trial of Kiwi vacuum assisted delivery. Procedures, risks, and indications explained prior to the surgery. She was taken to the OR with IV running. She was given two gram of Ancef intravenously for surgical prophylaxis. Her epidural anesthesia was dosed and found to be adequate. She was prepped and draped in the supine position with a leftward tilt. A barraza catheter had been previously placed. A Pfannensteil skin incision was then made with the scalpel. The underlying subcutaneous tissue was dissected down to the level of fascia with sharp and blunt dissection. The fascia was then entered in the midline and the fascial defect was extended bilaterally using the Cali scissors. The upper portion of the fascial defect was then grasped with two Jacques clamps, elevated and the rectus muscles dissected off with sharp and blunt dissection. In a similar fashion the rectus muscles were dissected off the lower fascial defect. The rectus muscles were then in the midline, the peritoneum identified and entered sharply. The peritoneal defect was enlarged using blunt dissection. A bladder blade was placed. A bladder flap was then created and the bladder blade replaced. The lower uterine segment was then incised in a transverse fashion. Once the cavity was entered the uterine defect was extended using blunt lateral and superior traction. The baby's head and body were then delivered atraumatically. The baby's mouth and nares were suctioned with a bulb suction. The cord was clamped and cut and the baby handed off to the waiting pediatric nurse for evaluation by the esthetician Dr Ma. The placenta was delivered manually, the uterus exteriorized, and the cavity cleared of all clot and membranes. The uterine incision was repaired in two layers with #1 Vicryl suture. The posterior cul de sac and gutters were cleared of all clot and fluid. The uterus was returned to the abdomen. The uterine incision was reinspected and found to be hemostatic. The peritoneum was repaired with a running stitch of 2-0 Vicryl. The rectus muscles were reapproximated with interrupted sutures of 0-Vicryl. The fascia was closed with a running stitch of #1 Stratofix suture. The subcutaneous tissue was closed with a running stitch of 2-0 Vicryl. The skin was closed with a subcuticular stitch of 4-0 Monocryl. Sponge, lap, needle, and instrument counts were correct. She was taken to her recovery room in stable condition. Grafts/Implants Used: none - Complications none - Admit VTE Documentation VTE Present on Admission: No VTE Mechan Device Prophylaxis: SCD's VTE Pharm Prophylaxis ordered?: No
--- NOTE | 2018-11-21 22:13 | OP.PCM_ITS ---
Report of Operation Date of Procedure: 11/21/18 Pre-Operative Diagnosis: Arrest of Descent Post-Operative Diagnosis: Same Surgery/Procedure Performed:: Primary Low Transverse Section Description of Surgical Findings:: Baby in transverse position. Amniotic fluid with moderate meconium. weight 8lb0oz. APGARs 8/9. Normal appearing uterus, ovaries, fallopian tubes. Maximum descent to +2 station. hospice superintendent: Kathryn Archer Type of Anesthesia:: Epidural Anesthesiologist: Guillermo Quintero Special Medications: none Specimen's removed: none Drains: barraza Estimated Blood Loss (mL): 600cc Fluids Replaced: 1500cc Description of Procedure: Vi progressed to FD pushed for 3 hours with no descent lower than +2 station despite adequate pushing efforts and trial of Kiwi vacuum assisted delivery. Procedures, risks, and indications explained prior to the surgery. She was taken to the OR with IV running. She was given two gram of Ancef intravenously for surgical prophylaxis. Her epidural anesthesia was dosed and found to be adequate. She was prepped and draped in the supine position with a leftward tilt. A barraza catheter had been previously placed. A Pfannensteil skin incision was then made with the scalpel. The underlying subcutaneous tissue was dissected down to the level of fascia with sharp and blunt dissection. The fascia was then entered in the midline and the fascial defect was extended bilaterally using the Cali scissors. The upper portion of the fascial defect was then grasped with two Jacques clamps, elevated and the rectus muscles dissected off with sharp and blunt dissection. In a similar fashion the rectus muscles were dissected off the lower fascial defect. The rectus muscles were then in the midline, the peritoneum identified and entered sharpl y. The peritoneal defect was enlarged using blunt dissection. A bladder blade was placed. A bladder flap was then created and the bladder blade replaced. The lower uterine segment was then incised in a transverse fashion. Once the cavity was entered the uterine defect was extended using blunt lateral and superior traction. The baby's head and body were then delivered atraumatically. The baby's mouth and nares were suctioned with a bulb suction. The cord was clamped and cut and the baby handed off to the waiting pediatric nurse for evaluation by the assistant baseball coach Dr Ma. The placenta was delivered manually, the uterus exteriorized, and the cavity cleared of all clot and membranes. The uterine incision was repaired in two layers with #1 Vicryl suture. The posterior cul de sac and gutters were cleared of all clot and fluid. The uterus was returned to the abdomen. The uterine incision was reinspected and found to be hemostatic. The peritoneum was repaired with a running stitch of 2-0 Vicryl. The rectus muscles were reapproximated with interrupted sutures of 0-Vicryl. The fascia was closed with a running stitch of #1 Stratofix suture. The subcutaneous tissue was closed with a running stitch of 2-0 Vicryl. The skin was closed with a subcuticular stitch of 4-0 Monocryl. Sponge, lap, needle, and instrument counts were correct. She was taken to her recovery room in stable condition. Grafts/Implants Used: none - Complications none - Admit VTE Documentation VTE Present on Admission: No VTE Mechan Device Prophylaxis: SCD's VTE Pharm Prophylaxis ordered?: No
--- NOTE | 2018-11-21 22:14 | DCINST_ITS ---
Discharge Diet: No Restrictions Discharge Activity: Return to Normal Activity, May Drive, May Shower Return to work on:: 01/21/19 May shower in (days): 0 May resume sexual activity in: 6 weeks Call your doctor if your incision/area has: Sudden Increased Bleeding, Increased Pain/ Swelling, Increased Redness, Foul Smelling Discharge, Swelling at the incision site Call your doctor if you observe: Fever of 101 or Higher, Inability to urinate, Inability to have a bowel movement, Using more than one pad per hour, Shortness of breath, Chest pain, Calf discomfort, Uncontrolled pain Remove Dressing in (days):: 3 Cleanse incision/area with: Soap & Water Additional Instructions: If you experience any of the following, contact your healthcare provider. * Bleeding that soaks a pad every hour for 2 hours * Fever 100.4 or higher * Unrelieved incision or abdominal pain * Swelling, redness, discharge or bleeding from your incision or episiotomy site * Your incision begins to separate * Problems urinating (including inability to urinate or burning while urinating). * Visual changes * Severe headache * Flu-like symptoms * Pain or redness in one of both of your breasts * Pain, warmth, tenderness or swelling in your legs, especially the calf area * Frequent nausea and vomiting * Symptoms of depression or anxiety If you experience any of the following, call 911 or go to the nearest Emergency Room. * Chest pain * Problems breathing * Seizure activity * Partial or complete paralysis of a body part, slurred speech, weakness or drooping of the face, or a sudden inability to walk or hold your balance Allergies/Adverse Reactions: Allergies No Known Allergies Allergy (Verified 11/21/18 00:42) Medications to take at Discharge Ibuprofen 600 mg PO 4X/DAY #30 tab 11/21/18 Oxycodone [Oxyir] 5 - 10 mg PO Q4H PRN PRN 7 Days #20 tab 11/21/18 The following prescriptions were given: Oxycodone [Oxyir] 5 - 10 mg PO Q4H PRN PRN 7 Days #20 tab PRN Reason: Mod-Severe Pain (4-10/10) Ibuprofen 600 mg PO 4X/DAY #30 tab Follow-Up: Call to make an appointment with your doctor for an incision check in 1-2 weeks. You will also need a 6 week post- follow up appointment. Test results from this visit will be discussed in further detail at your follow- up appointment, if applicable. Please Follow Up With: Amrit Romeo MD When: 1-2 weeks call for appt Proposed Discharge Date: 11/24/18
[2018-11-21] MEDS: Cefazolin 2 GM in 0.9% Normal Saline 100 ML IV (22:17)
[2018-11-21] MEDS: Oxytocin 30 units/NS 500 ml 30 UNITS/500 ML IV.SOLN 167 UNITS IV (22:37)
[2018-11-21] MEDS: Ketorolac 30 MG/ML Syringe IV (23:14)
[2018-11-21 23:20] VITALS: BP 127/73; BP 143/74; PULSE 99; RESP 20; TEMP 37.9; O2SAT 97
[2018-11-21] MEDS: Lactated Ringers 1,000 ML 100 ML IV (23:20)
[2018-11-21 23:35] VITALS: BP 127/73; BP 128/74; PULSE 103; RESP 18; TEMP 37.7; O2SAT 97
[2018-11-21] MEDS: Methylergonovine 0.2 MG/ML Ampul IM (23:39)
[2018-11-21 23:50] VITALS: BP 127/73; BP 131/76; PULSE 102; RESP 18; O2SAT 96
[2018-11-22] VITALS (22 sets, daily range): BP systolic 113–130; BP diastolic 46–83; PULSE 75–107; RESP 16–18; TEMP 36.4–37.4; O2SAT 92–99
--- NOTE | 2018-11-22 03:44 | NURSING ---
epidural cath d/c with blue tip intact. pt tolerated well
[2018-11-22] MEDS: 0.9% Saline Lock 10 ML Syringe IV ×3 (05:38→23:11)
[2018-11-22] MEDS: Cefazolin 1 GM/50 ML BAG IV ×2 (05:39→13:50)
[2018-11-22] MEDS: Ketorolac 30 MG/ML Syringe IV ×4 (05:39→23:11)
[2018-11-22 06:02] LABS: Hematocrit 32.5 % (37-47); Hemoglobin 10.5 g/dl (12.0-15.0); Mean Corp Hgb Conc 32.3 g/gl (32-36); Mean Corpuscular Volume 86.7 fL (81-99); Mean Platelet Vol. 9.7 fl (6.2-12.0); Platelet Count 162 K/mm3 (150-450); RBC Distribution Width CV 14.5 % (11.6-14.6); RBC Distribution Width SD 45.2 fl (35.1-43.9); Red Blood Count 3.75 M/mm3 (4.2-5.4); Scan Indicated on CBC? Y/N NO; White Blood Count 15.4 K/mm3 (4.4-11.0)
--- NOTE | 2018-11-22 07:57 | PCM.PN.OB ---
Subjective: Some soreness at incision site. Pain overall reasonably controlled. Tolerating PO. Breast feeding. Objective: Afeb VSS Urine output adequate. Hgb stable. - Physical Exam General: Alert, Oriented x3, No apparent distress Lungs: Clear to auscultation, Normal air movement Cardiovascular: Regular rate, Regular Rhythm Abdomen: Soft, Non Tender, Non-Distended, - - Incision dressing dry Extremities: No edema Skin: No rashes Neurological: Neuro grossly intact Psych/Mental Status: Normal Affect Comment: Lochia light Vital Signs Temp Pulse Resp BP Pulse Ox 99.2 F H 93 16 123/76 H 95 11/22/18 05:30 11/22/18 05:30 11/22/18 05:30 11/22/18 05:30 11/22/18 05:30 Oxygen Flow Rate (L/min) 1 Oxygen Delivery Method Room Air Weight: 201 lb 0.985 oz Body Mass Index (BMI) 36.8 Intake and Output for Last 24 Hours 11/20/24 11//11/22/18 23:59 23:59 23:59 Intake Total 5164 / 5164 968 / 968 Output Total 2750 / 2750 1100 / 1100 Balance 2414 / 2414 -132 / -132 Laboratory Tests Past 24 Hrs 11/22/18 05:50 WBC 15.4 H RBC 3.75 L Hgb 10.5 L Hct 32.5 L MCV 86.7 MCH 28.0 MCHC 32.3 RDW 14.5 RDW Differential 45.2 H Plt Count 162 MPV 9.7 Medical Necessity - Tobacco Use Smoking Status: Never smoker Assessment/Plan Doing well on POD#1. Continue routine PO care. D/C christi lopez.
[2018-11-22] MEDS: Lactated Ringers 1,000 ML 100 ML IV (09:54)
[2018-11-22] MEDS: Senna/Docusate Sodium 1 Tablet PO (13:50)
[2018-11-23 02:15] VITALS: BP 124/77; PULSE 90; RESP 16; TEMP 36.3; O2SAT 97
[2018-11-23] MEDS: Ketorolac 30 MG/ML Syringe IV ×3 (06:03→18:05)
[2018-11-23] MEDS: 0.9% Saline Lock 10 ML Syringe IV ×3 (06:03→18:06)
[2018-11-23 08:00] VITALS: BP 127/82; PULSE 90; RESP 17; TEMP 36.6; O2SAT 96
--- NOTE | 2018-11-23 08:00 | PCM.PN.OB ---
Subjective: Reports intense gas pain overnight, improved since passing gas. No bowel movement yet. She is and nursing improved with nipple shield. She is sore, but pain is manageable. Denies nausea or vomiting and tolerates a regular diet. Objective: AVSS - Physical Exam General: Alert, Oriented x3, Cooperative, No apparent distress HEENT: Atraumatic, Normocephalic Lungs: Clear to auscultation, Normal air movement Cardiovascular: Regular rate, Regular Rhythm, Normal S1, Normal S2 Abdomen: Bowel Sounds Present, Soft, Non Tender, Non-Distended, - - Fundus firm and nontender, incisional dressing c/d/i, lochia scant Extremities: No edema, No Calf Tenderness Neurological: Neuro grossly intact Psych/Mental Status: Normal Affect, Appropriate, Alert and oriented to time, place, person, mood and affect Vital Signs Temp Pulse Resp BP Pulse Ox 97.3 F L 90 16 124/77 H 97 11/23/18 02:15 11/23/18 02:15 11/23/18 02:15 11/23/18 02:15 11/23/18 02:15 Oxygen Flow Rate (L/min) 1 Oxygen Delivery Method Room Air Weight: 91.2 kg Body Mass Index (BMI) 36.8 Intake and Output for Last 24 Hours 11/21/18 11/22/18 11/23/18 23:59 23:59 23:59 Intake Total 5164 / 5164 2806 / 2806 Output Total 2750 / 2750 4250 / 4250 Balance 2414 / 2414 -1444 / -1444 Medical Necessity - Tobacco Use Smoking Status: Never smoker Assessment/Plan 23yo POD#2 s/p PLTCS doing well. - -A positive -Routine postop care
[2018-11-23 14:00] VITALS: BP 128/82; PULSE 81; RESP 17; TEMP 36.9; O2SAT 99
[2018-11-23 16:30] VITALS: BP 128/82; PULSE 87; RESP 17; TEMP 36.9; O2SAT 99
[2018-11-23 20:08] VITALS: BP 93/65; PULSE 78; RESP 16; TEMP 36.4; O2SAT 98
[2018-11-24 01:35] VITALS: BP 127/87; PULSE 83; RESP 16; TEMP 36.7
[2018-11-24 09:00] VITALS: BP 131/79; PULSE 68; RESP 18; TEMP 36.7
--- NOTE | 2018-11-24 10:22 | PCM.PN.OB ---
Subjective: Pain is minimal. Vi feels well and is without complaints. Objective: AVSS - Physical Exam General: Alert, Oriented x3, Cooperative, No apparent distress HEENT: Atraumatic, Normocephalic Lungs: Clear to auscultation, Normal air movement Cardiovascular: Regular rate, Regular Rhythm Abdomen: Soft, Non Tender, Non-Distended, - - Fundus firm and nontender, incisional dressing c/d/i Extremities: No edema, No Calf Tenderness Neurological: Neuro grossly intact Psych/Mental Status: Normal Affect, Appropriate, Alert and oriented to time, place, person, mood and affect Vital Signs Temp Pulse Resp BP Pulse Ox 98.0 F 68 18 131/79 H 98 11/24/18 09:00 11/24/18 09:00 11/24/18 09:00 11/24/18 09:00 11/23/18 20:08 Oxygen Flow Rate (L/min) 1 Oxygen Delivery Method Room Air Weight: 91.2 kg Body Mass Index (BMI) 36.8 Intake and Output for Last 24 Hours 11/22/18 11/23/18 11/24/18 23:59 23:59 23:59 Intake Total 2806 / 2806 Output Total 4250 / 4250 Balance -1444 / -1444 Medical Necessity - Tobacco Use Smoking Status: Never smoker Assessment/Plan 23yo POD#3 s/p PLTCS doing well. - -A positive, Rubella immune -Routine postop care -d/c home today. Home incisional care reviewed.
--- NOTE | 2018-11-24 10:25 | PCM.DC.SUM ---
Discharge Date and Diagnosis Date of Admission: 11/21/18 Date of Discharge: 11/24/18 Hospital Course and Treatment Operations: - - Low transverse section Procedures: None Summary of Care Provided: The patient is a 23 year old F 1 admitted at 40 weeks gestation in labor. She underwent primary section for arrest of descent. Her postoperative course was uncomplicated. She was out of bed, ambulating, voiding, tolerating a regular diet and passing flatus. She was discharged to home on post-operative day #3. - Physical Exam Vital Signs Temp Pulse Resp BP Pulse Ox 98.0 F 68 18 131/79 H 98 11/24/18 09:00 11/24/18 09:00 11/24/18 09:00 11/24/18 09:00 11/23/18 20:08 Oxygen Flow Rate (L/min) 1 Oxygen Delivery Method Room Air Weight: 91.2 kg Body Mass Index (BMI) 36.8 Intake and Output for Last 24 Hours 11/22/18 11/23/18 11/24/18 23:59 23:59 23:59 Intake Total 2806 / 2806 Output Total 4250 / 4250 Balance -1444 / -1444 Discharge Diet: No Restrictions Discharge Activity: Return to Normal Activity, May Drive, May Shower Return to work on:: 01/21/19 May shower in (days): 0 May resume sexual activity in: 6 weeks Call your doctor if your incision/area has: Sudden Increased Bleeding, Increased Pain/ Swelling, Increased Redness, Foul Smelling Discharge, Swelling at the incision site Call your doctor if you observe: Fever of 101 or Higher, Inability to urinate, Inability to have a bowel movement, Using more than one pad per hour, Shortness of breath, Chest pain, Calf discomfort, Uncontrolled pain Remove Dressing in (days):: 3 Cleanse incision/area with: Soap & Water Home Medications: Medications to take at Discharge Ibuprofen 600 mg PO 4X/DAY #30 tab 11/21/18 Oxycodone [Oxyir] 5 - 10 mg PO Q4H PRN PRN 7 Days #20 tab 11/21/18 Following Prescrptions Were Given to Patient: Oxycodone [Oxyir] 5 - 10 mg PO Q4H PRN PRN 7 Days #20 tab PRN Reason: Mod-Severe Pain (4-10) Ibuprofen 600 mg PO 4X/DAY #30 tab Please Follow Up With: Amrit Romeo MD When: 1-2 weeks call for appt Medical Necessity - Tobacco Use Smoking Status: Never smoker Meaningful Use Info Meaningful Use Diagnoses (Choose all that apply): None applicable
[2018-11-24 13:30] VITALS: BP 128/78; PULSE 68; RESP 18; TEMP 36.8
--- OUTSIDE RECORDS SUMMARY | 2019-01-25 20:39 | XMS RPT_ITS ---
:1995 Author Organization OHIP Care Team Providers Name Role Phone KYLIE WHEATLEY MD Admitting Unavailable KYLIE WHEATLEY MD Attending Unavailable KYLIE WHEATLEY MD Primary Care Unavailable EM CASTILLO Admitting Unavailable EM CASTILLO Attending Unavailable EM CASTILLO Primary Care Unavailable ANTHONY BRIDGES CNM Admitting Unavailable ANTHONY BRIDGES CNM Attending Unavailable ANTHONY BRIDGES CNM Primary Care Unavailable AARON COHEN Consulting Unavailable PROVIDER, UNKNOWN Consulting Unavailable Em Castillo [...] Unknown G89.18 - Other acute Riddhi Huff Active [place] postprocedural pain Community / G89.18(ICD-10) Hospital Repository 10/24/2018 Unknown Z36.85 - Encounter Em Castillo for Community screening for Hospital Streptococcus B / Repository Z36.85(ICD-10) 09/04/2018 Unknown O24.912 - Agueda Em Carlos Unspecified diabetes Community mellitus in Hospital , second Repository trimester / O24.912(ICD-10) 08/28/2018 Admitting Encounter for EM CASTILLO Leanna Ferguson Diagnosis supervision of other [facility] second trimester / Repository Z3482(ICD-10) 08/28/2018 Principle Encounter for EM CASTILLO Leanna Ferguson Diagnosis supervision of other [facility] second trimester / Repository Z3482(ICD-10) 05/10/2018 Unknown Z32.01 - Encounter Em Castillo for test, Community result positive / Hospital Z32.01(ICD-10) Repository 05/10/2018 Unknown Z11.3 - Encounter Em Castillo for screening for Community infections with a Hospital predominantly sexual Repository mode of transmission / Z11.3(ICD-10) 05/10/2018 Unknown Z12.4 - Encounter Em Castillo for screening for Community malignant neoplasm [facility] / Repository Z12.4(ICD-10) PROCEDURES PROCEDURES No Procedure Records FoundRESULTS RESULTS DISCHARGE SUMMARY Observed: 11/24/2018 Status: F Source: [place] 10:27 AM [facility] REPOSITORY [facility] Medical Records Department [address] [place] [address] Discharge Summary 11/24/18 1025 MR#: [id number] Acct: [id number] Name: VI LUND Nate Rep #: [id number] : 1995 23 From: Shea Cordova MD PCP: Status: ADM IN Y Location: WP [id number] Discharge Date and Diagnosis Date of Admission: [...] OPERATIVE REPORT Observed: 11/22/2018 Status: F Source: [place] 8:05 AM [facility] REPOSITORY [facility] Medical Records Department [address] [place] [address] Operative Report 11/21/18 2159 MR#: [id number] Acct: [id number] Name: VI LUND Rep #: [id number] : 1995 23 From: Serafin Walls MD PCP: Status: ADM IN Location: GR940-9 Report of Operation Date of Procedure: 11/21/18 Pre-Operative Diagnosis: Arrest of Descent Post-Operative Diagnosis: Same Surgery/Procedure Performed:: Primary Low Transverse Section Description of Surgical Findings:: Baby in transverse position. Amniotic fluid with moderate meconium. weight 8lb0oz. APGARs 8/9. Normal appearing uterus, ovaries, fallopian tubes. Maximum descent to +2 station. hvac technician residential: Kathryn Archer Type of Anesthesia:: Epidural Anesthesiologist: [...] waiting pediatric nurse for evaluation by the school transportation supervisor Dr Ma. The placenta was delivered manually, [...] OPERATIVE REPORT Observed: 11/22/2018 Status: F Source: [place] 8:03 AM [facility] REPOSITORY [facility] Medical Records Department [address] [place] [address] Operative Report 11/21/18 2157 MR#: [id number] Acct: [id number] Name: VI LUND Rep #: [id number] : 1995 23 From: Serafin Walls MD PCP: Status: ADM IN Y Location: [place] [address] Delivery Classification: STEPHANIE Final JAJA: 11/21/18 Final JAJA Source: US <20 weeks Gestational age: 40 Weeks and 1 Days doctor who attended delivery (if requested by OB): Gracia Panchal Indications for : Failure to Progress, Failure of Descent Description of Procedure: Baby in transverse position. Amniotic fluid with moderate meconium. weight 8vcv3yk. Apgars 8/9. Normal appearing uterus, ovaries, and [...] F Source: [place] NO DIFF 5:50 AM [facility] REPOSITORY Order Comment: Comments: Day #1 Reason [...] MPV 9.7 Performed By: #### L100.0500 #### [facility] [address] [facility] [place], [address] DISCHARGE INSTRUCTION Observed: 11/21/2018 Status: F Source: [place] 10:14 PM [facility] REPOSITORY [facility] Medical Records Department [address] [place] [address] Instructions for Home/Discharge Instructions 11/21/18 2213 MR#: [id number] Acct: [id number] Name: VI LUND Rep #: [id number] : 1995 23 From: Serafin Walls MD [...] for appt Proposed Discharge Date: 11/24/18 11/21/18 7112 <Electronically signed by Serafin Walls MD> Date Serafin Walls MD CC: Signed CBC-COMPLETE BLOOD CNT Collected: 11/21/2018 Status: F Source: [place] NO DIFF 1:20 AM [facility] REPOSITORY TYPE CODE TESTS RESULT OUT OF [...] MPV 10.2 Performed By: #### L100.0500 #### [facility] [address] [facility] [place], [address] TYPE AND SCREEN Collected: 11/21/2018 Status: F Source: [place] 1:20 AM [facility] REPOSITORY Order Comment: Reason for Type AND Screen/Red Cells: ROUTINE TYPE CODE TESTS RESULT OUT OF RANGE REFERENCE UNITS LAB B10.0800 A Normal BLOOD TYPE GEL POSITIVE LAB B100.4000 Normal Antibody NEGATIVE Screen Performed By: #### B101.7450 #### [facility] [address] [facility] [place], [address] Observed: 10/23/2018 Status: F Source: [place] CULTURE, GROUP B 9:30 AM [facility] STREPTOCOCCUS REPOSITORY Comments: VAGINAL/RECTAL ESPERANZA Culture ORGANISM 1: Streptococcus agalactiae (B) Amount Growth Growth Streptococcus agalactiae (B): REACTION Ampicillin $ <=0.25 S Clindamycin $$ <=0.25 R Inducable Clindamycin Resistan + Linezolid $$$$ <=2 S Vancomycin $ 0.5 S (NF) indicates non-formulary drug at [facility]. Approval by Infectious Disease Specialist required before non-formulary drugs may be ordered and/or dispensed. * CLSI guidelines does not recommend testing of cephalosporins. This interpretation is deduced from Beta-lactam/penicillin results. Performed By: #### M100.1800 #### [facility] [address] [facility] [place], [place], [address] GESTATIONAL GTT 3HR Collected: 09/04/2018 Status: F Source: [place] 100G 9:47 AM [facility] REPOSITORY Order Comment: Is Patient Fasting? Y [...] 3HR 62 Performed By: #### L500.4710 #### [facility] [address] [facility] [place], [place], [address] URINALYSIS WITHOUT Collected: 08/30/2018 Status: F Source: [facility] MICROSCOPY 7:44 PM [facility] REPOSITORY TYPE CODE TESTS RESULT OUT [...] - 1.0 C) Urobilinogen NORM LAB Sp [place](LOINC) NORMAL: 1.010-1.035 Sp [place] 1.010 LAB Nitrite(LOINC) NORMAL: NEGATIVE Nitrite NEG LAB Leukocytes(LOINC) NORMAL: NEGATIVE Leukocytes Abnormal 500 Performed By: #### [id number] #### [place] [address] [address] Observed: 08/30/2018 Status: F Source: [place] FIBRONECTIN 7:44 PM [facility] REPOSITORY FIBRONECTIN POSITIVE A negative fFN [...] lubricants, soaps, or disinfectants. Performed By: #### [id number] #### [address] [address] CBC Collected: 08/28/2018 Status: F Source: [place] 9:55 AM [facility] REPOSITORY TYPE CODE TESTS RESULT OUT [...] x10EE3/U L Neut # High 7.80 LAB [place] #(LOINC) 0.20 - 1.00 x10EE3/U L [place] # 0.50 LAB EO #(LOINC) 0.00 - 0.50 x10EE3/U L EO # 0.00 LAB Baso #(LOINC) 0.00 - 0.10 x10EE3/U L Baso # 0.00 LAB MANUAL DIFF([facility]) MANUAL DIFF N/A LAB MORPHOLOGY(INC ) MORPHOLOGY N/A Result Comment: {CD] Performed By: #### [id number] #### [facility],[address] [place] [address] GLUCOSE CHALLENGE 50GM Collected: 08/28/2018 Status: F Source: [facility] 1 HOUR 9:55 AM [facility] REPOSITORY TYPE CODE TESTS RESULT OUT OF REFERENCE UNITS RANGE LAB GLUCOSE CHALLENGE 50GM 1 HOUR(INC) GLUCOSE CHALLENGE 50GM 1 HOUR Result Comment: GLUCOSE CHALLENGE 50 GMS 1 HOUR LAB GLUCOSE 70 - 140 mg/dl 1HR(LOINC) High GLUCOSE 1HR 158 Performed By: #### [id number] #### [facility],[address] [place] [address] URINALYSIS Collected: 06/05/2018 Status: F Source: [facility] 10:00 AM [facility] REPOSITORY TYPE CODE TESTS RESULT OUT [...] ) NORMAL NORM Urobilinog LAB Sp NORMAL: [place](LOINC) Low 1.010-1.030 Sp 1.005 [place] LAB Nitrite(LOINC) NORMAL: NEGATIVE Nitrite NEG LAB [...] LAB Yeast(LOINC) Yeast NONE Performed By: #### [id number] #### [facility],[address] [place] [address] CBC Collected: 06/05/2018 Status: F Source: [facility] 10:00 AM [facility] REPOSITORY TYPE CODE TESTS RESULT OUT [...] x10EE3/U L Neut # High 7.30 LAB [place] #(LOINC) 0.20 - 1.00 x10EE3/U L [place] # 0.60 LAB EO #(LOINC) 0.00 - 0.50 x10EE3/U L EO # 0.00 LAB Baso #(LOINC) 0.00 - 0.10 x10EE3/U L Baso # 0.10 LAB MANUAL DIFF([facility]) MANUAL DIFF N/A LAB MORPHOLOGY([facility] ) MORPHOLOGY N/A Result Comment: {CD] Performed By: #### [id number] #### [place] [address] TSH Collected: 06/05/2018 Status: F Source: [facility] 10:00 [facility] REPOSITORY TYPE CODE TESTS RESULT OUT OF RANGE REFERENCE UNITS LAB TSH(INC) 0.34 - 5.60 uIU/ml TSH 0.60 Performed By: #### [id number] #### [place] [address] BB TYPE & SCREEN Collected: 06/05/2018 Status: F Source: [facility] 10:00 [facility] REPOSITORY TYPE CODE TESTS RESULT OUT OF REFERENCE UNITS RANGE LAB BB TYPE & SCREEN(LOIN C) BB TYPE & SCREEN Result Comment: TYPE, Rh, AND SCREEN LAB ABO(LOINC) ABO A LAB Rh(LOINC) Rh POS LAB ANTIBODY SCR([facility]) ANTIBODY negative SCR Performed By: #### [id number] #### [place] [address] HEP B SURFACE AG Collected: 06/05/2018 Status: F Source: [facility] 10:00 [facility] REPOSITORY TYPE CODE TESTS RESULT OUT OF [...] the current package insert. Test Performed by [employer], [employer] [facility], [address] [place] [address] Oswaldo Cordova M.D., Ph.D., Director of Laboratories , [facility] [id number] 06/08/18.XMT.SENT REF 06/08/18.XMT.SENT REF Performed By: #### [id number] #### [facility],[address] [place], [place] [address] HEP C VIRUS AB WITH Collected: 06/05/2018 Status: F Source: [facility] REFLEX [QUEST] 10:00 AM [facility] REPOSITORY TYPE CODE TESTS RESULT OUT OF REFERENCE UNITS RANGE LAB HEP C VIRUS AB WITH REFLEX [QUEST](LOINC HEP C ) VIRUS AB WITH REFLEX [QUEST] Result Comment: _HEP C VIRUS AB_ HEPATITIS C AB W/REFL HCV RNA, QN REAL-TIME PCR Reported: 06/08/2018 03:50 Status=F TEST RESULT FLAG RANGE UNITS HEPATITIS C ANTIBODY Nonreactive Nonreactive 06/08/18.rfl.COMPLETE.AMRR .78235-6 SIGNAL TO CUTOFF 0.01 <1.00 ratio 06/08/18.rfl.COMPLETE.AMRR .92423-0 ADDITIONAL TESTING Not indicated 06/08/18.rfl.COMPLETE.AMRR Test Performed by [facility], [employer] [facility], [address] [place] [address] Oswaldo Cordova M.D., Ph.D., Director of Laboratories , [facility] [id number] Performed By: #### [id number] #### [facility],[address] [place] [address] RUBELLA Collected: 06/05/2018 Status: F Source: [facility] 10:00 [facility] REPOSITORY TYPE CODE TESTS RESULT OUT OF [...] Rubella virus. Test Performed by [employer] Bell, [employer] [facility], [address] [place] [address] Oswaldo Cordova M.D., Ph.D., Director of Laboratories , [facility] [id number] 06/08/18.1000.XMT.SENT REF 06/08/18.999.XMT.SENT REF Performed By: #### [id number] #### [facility],[address] [place] [address] RPR [QUEST] Collected: 06/05/2018 Status: F Source: [place] 10:00 AM [facility] REPOSITORY TYPE CODE TESTS RESULT OUT OF RANGE REFERENCE UNITS LAB RPR [QUEST]([place]) RPR [QUEST] Result Comment: _RPR (MONITOR) with REFLEX_ RPR (MONITOR) WITH REFLEX TO TITER Reported: 06/08/2018 18:14 Status=F TEST RESULT FLAG RANGE UNITS RPR SCREEN Nonreactive Nonreactive 06/08/18.BethTD .AMRR .80758-0 RPR TITER Not indicated. 06/08/18.Jennifer .AMRR Test Performed by [employer], [employer] [facility], [address] [place] [address] Oswaldo Cordova M.D., Ph.D., Director of [employer] , [facility] [id number] 06/08/18.XMT.SENT REF 06/08/18.XMT.SENT REF Performed By: #### [id number] #### [facility],[address] [place] [address] AFP MATERNAL (SERUM) Collected: 06/05/2018 Status: F Source: [facility] [QUEST] 10:00 AM [facility] REPOSITORY TYPE CODE TESTS RESULT OUT [...] dimeric Inhibin A, as recommended by the [employer]. It should be noted that normal test results can never guarantee the of a normal baby and that 2-3% of newborns have some type of physical or mental defect, many of which are undetectable through any known diagnostic technique. For additional information, please refer to http://education.enStage/faq/HUP26a9 (This link is being provided for informational/educational [...] Egg Retrieval N 06/11/18.2235.rfl.COMPLETE.AMRR Test performed by [employer] [address] [place] [address] Customer Consulting Manager: Supriya Monge MD,PHD,BAM Test Reported by [facility], [employer] [address] [place], [address] [place], [place] Oswaldo Cordova M.D., Ph.D., Director of Laboratories , [facility] [id number] Performed By: #### [id number] #### [facility],[address] [place] [address] CT/NG WCH BY PCR Collected: 05/08/2018 Status: F Source: [place] 8:49 PM [facility] REPOSITORY TYPE CODE TESTS RESULT OUT OF RANGE REFERENCE UNITS LAB L8200.2100 Negative Normal Chlam Negative Trac PCR LAB L8200.2200 Negative Normal NG by Negative PCR Performed By: #### L8200.2000 #### [facility] [address] [place], [place], [id number] PAP TEST I-G Collected: 05/08/2018 Status: F Source: [place] 8:49 PM [facility] REPOSITORY Order Comment: CYTOLOGY INFORMATION: - CLINICAL INFORMATION: - DATE LMP/MENOPAUSE: 02/14/18 LMP - COLLECTION VIAL: Thin Prep Vial - COLLEGE HIRE SOURCE: CERVICAL/ENDOCERVICAL - COLLECTION TECHNIQUE: BRUSH/SPATULA Specimen Comment: [id number] Specimen Comment: No. of containers..01 ThinPrep Vial [...] Normal PERFORM Comment Result Comment: Tonia Post, Tenant Relations Coordinator (ASCP) LAB L7400.1720 . Normal Path prov. Comment ICD9 Result Comment: R87.5 LAB L7400.2575 . Normal TEST METHOD Comment Result Comment: This liquid based ThinPrep(R) pap test was screened with the use of an image guided system. Performed at: - [facility] [id number] Diabetes Physician: Sonia Márquez MD, Phone: [phone] LAB L6000.4406 . Normal . COMM LAB L7400.5230 . Normal PAPSMR Comment Result Comment: The [...] SOURCE 11/21/2018 Drug No Known Unknown [place] Allergy/[id number](S Allergies/F0019 [facility]) 13415(RXNORM) Hospital Repository Miscellaneous No Known U Casper Ferguson Allergy/164464978(S Allergies [facility]) Hospital Repository ENCOUNTERS ENCOUNTERS ADMIT/DISCHARGE ACCOUNT ADMITTING ENCOUNTER LOCATION SOURCE NUMBER CLASS 11/21/2018/ [id number] Daria, Inpatient [place] 9 2 Riddhi Encounter [facility] ing:WPRoom: Repository [id number]: 1 11/21/2018 [id number] Em Castillo Ambulatory [place] 7 [facility] ing:WP Repository 10/23/2018 [id number] Ambulatory [place] 3 [facility] ing:LABSPEC Repository 09/04/2018 [id number] Ambulatory [place] 7 [facility] ing:LAB Repository 08/30/2018/ [id number] CYRUS, [facility] BuildinR Cas[place] Ferguson 8 ANTHONY CAZARES oom: [address] [place] [address] Repository 08/28/2018/ [id number] EM CASTILLO Ambulatory [facility] 8 [facility] Repository 06/05/2018/ [id number] WHEATLEYKYLIE [facility] 8 [facility] Repository 05/08/2018 [id number] Ambulatory [place] [address] [place] [address] ing:LABSPEC Repository PAYERS PAYERS ENCOUNTER GUARANTOR PAYER SUBSCRIBER SOURCE 11/21/2018 VI Nate Primary Insurance:[facility] VI [id number] TR PACKAGE PLANPolicy MILLERDOB: [address], Number: [id number] [facility]ley [facility] [address]Dic: [id number] Repository Date:2018-11-21 () 11/21/2018 Secondary NOT GIVENUNK [place] Insurance:SELF PAY [facility] Number: Effective Repository Date:2018-11-21 11/21/2018 VI Primary Insurance:[facility] VI [place] [id number] TR PACKAGE PLANPolicy MILLERDOB: [address], Number: 0Effective [id number] Tingley Hospital [address]Jkk: Date:2018-05-29 Repository () 11/21/2018 Secondary NOT GIVENUNK [place] Insurance:SELF PAY [facility] Number: Effective Repository Date:2018-05-29 10/23/2018 VI [place] Primary VI [id number] TR Insurance:RELIGION MILLERDOB: [address] [id number] Tingley Hospital [address]Tcu: GROUPPolicy Number: Repository [id number] () Date: [address] [address]IV: 10/23/2018 Secondary NOT GIVENUNK [place] Insurance:SELF PAY [facility] Number: Effective Repository Date:2018-10-23 09/04/2018 VI Nate Primary VI [place] Terrancenya [id number] TR Insurance:RELIGION MILLERDOB: [address] [id number] Tingley Hospital [address]Dwl: [facility] Number: Repository [id number] () Date: [address] [address]EK: 09/04/2018 Secondary NOT GIVENUNK [place] Insurance:SELF PAY [facility] Number: Effective Repository Date:2018-08-29 08/30/2018 VI Primary NICOLE LEONARDB: Cas[place] LEONARDB: Insurance:RELIGION [id number] [facility] [id number] [address] TR Number: 85Effective [address] [place] [address], Repository [address] [place] [address], Date: Dc 90100 Dc [id number]: () 05/08/2018 VI Primary NOT [facility]EN[facility]7644 Insurance:SELF PAY [address] [address]Ndn: Number: Effective Repository Date:2018-05-08 ()
== END 2018-11-24 13:25 | disposition home or self-care (01) | DRG 788 ==
LOC: WP 00:55 → WPOUT 00:55
PROVIDERS: Obstetrics & Gynecology; Admitting Provider Obstetrics & Gynecology; Visit Provider Obstetrics & Gynecology
DX: O62.1 Secondary uterine inertia (principal); O66.5 Attempted application of vacuum extractor and forceps; O42.02 Full-term premature rupture of membranes, onset of labor within 24 hours of rupture; O77.0 Labor and delivery complicated by meconium in amniotic fluid; O99.824 Streptococcus B carrier state complicating childbirth; Z3A.40 40 weeks gestation of pregnancy; Z37.0 Single live birth
CPT/HCPCS: 59025; 59050; 85027; 86850; 86900; 99218; J7120; A4216; G0378; J0290; J2405